=== PATIENT | female | born 1985 | race Caucasian/White ===

== ENCOUNTER → 2019-07-05 07:56 | Outpatient (CLI) | payer OTHER, SELFPAY ==
[2019-07-05 09:06] LABS: HCG Quantitative /Beta subunit < 2.39 mIU/mL
== END ==
PROVIDERS: Visit Provider Obstetrics & Gynecology Reproductive Endocrinology
DX: Z32.00 Encounter for pregnancy test, result unknown (principal)
CPT/HCPCS: 36415; 84702

== ENCOUNTER → 2019-09-01 09:38 | Outpatient (CLI) | payer OTHER, SELFPAY ==
[2019-09-01 10:51] LABS: HCG Quantitative /Beta subunit 178.49 mIU/mL
== END ==
PROVIDERS: Visit Provider Obstetrics & Gynecology Reproductive Endocrinology
DX: Z32.00 Encounter for pregnancy test, result unknown (principal)
CPT/HCPCS: 36415; 84702

== ENCOUNTER → 2019-09-03 07:48 | Outpatient (CLI) | payer OTHER, SELFPAY ==
[2019-09-03 08:50] LABS: HCG Quantitative /Beta subunit 449.08 mIU/mL
== END ==
PROVIDERS: Visit Provider Obstetrics & Gynecology Reproductive Endocrinology
DX: Z32.01 Encounter for pregnancy test, result positive (principal)
CPT/HCPCS: 36415; 84702

== ENCOUNTER → 2021-03-23 11:59 | Outpatient (CLI) | payer OTHER, SELFPAY ==
--- NOTE | 2021-03-23 12:03 | DI.MG.S_ITS ---
BILATERAL DIGITAL DIAGNOSTIC MAMMOGRAM 3D/2D: 03/23/2021 CLINICAL: Baseline exam. Breast pain. No prior exams were available for comparison. There are scattered fibroglandular elements in both breasts. There is an equal density focal asymmetry in the left breast at 4 o'clock anterior depth. No other significant masses, calcifications, or other findings are seen in either breast. IMPRESSION: INCOMPLETE: NEEDS ADDITIONAL IMAGING EVALUATION The equal density focal asymmetry in the left breast most likely is fibroglandular tissue and is indeterminate. There is no mammographic abnormality seen in the upper outer quadrant of the left breast to correspond with the area of clinical concern, palpable abnormality, and pain indicated by square marker. There is asymmetric distribution of fibroglandular tissue in the vicinity within the upper outer quadrant posterior depth. An ultrasound is recommended for further evaluation and is scheduled to immediately follow this examination. This exam was interpreted at Station ID: [id number]. NOTE: For mammograms, a report in lay terms will be sent to the patient. Approximately 15% of breast malignancies will not be visualized mammographically. In the management of a palpable breast mass, a negative mammogram must not discourage biopsy of a clinically suspicious lesion. Electronically Signed By: John Rico M.D. aty/:03/23/2021 14:08:04 ACR BI-RADS Category 0: Incomplete [id number]
--- NOTE | 2021-03-23 12:03 | DI.US.S_ITS ---
ULTRASOUND OF LEFT BREAST: 03/23/2021 CLINICAL: Focal left breast pain. Comparison is made to exam dated: 03/23/2021 [facility]. Color flow and real-time ultrasound of the left breast were performed. Priest scale images of the real-time examination were reviewed. No significant abnormalities were seen sonographically in the left breast. IMPRESSION: NEGATIVE There is no sonographic evidence of malignancy. There is no abnormality seen in the left breast to correspond with the area of clinical concern and focal pain in the posterior depth in the upper outer quadrant which is consistent with normal fibroglandular tissue, however, recommend clinical follow up for persistent or worsening symptoms, or development of any clinically suspicious findings. There is no abnormality seen in the left breast to correspond with the mammography finding which likely represents normal fibroglandular tissue. Recommend initiating routine screening mammograms at age 42. Findings and recommendations were conveyed to the patient during today's evaluation. This exam was interpreted at Station ID: [id number]. Electronically Signed By: John Rico M.D. aty/:03/23/2021 14:28:41 letter sent: Clinical Evaluation Ultrasound BI-RADS: 1 Negative
== END ==
PROVIDERS: PCP Student in an Organized Health Care Education/Training Program; Referring Provider Student in an Organized Health Care Education/Training Program; Visit Provider Student in an Organized Health Care Education/Training Program
DX: R92.8 Other abnormal and inconclusive findings on diagnostic imaging of breast (principal); N64.4 Mastodynia; N64.89 Other specified disorders of breast
CPT/HCPCS: 76642; 77066; G0279